=== PATIENT | male | born 1950 | race African-American/Black ===

== ENCOUNTER → 2021-11-17 | Outpatient (CLI) | payer BC | END | disposition home or self-care (01) | LOC: COVID19 15:15 | PROVIDERS: ATTEND Internal Medicine | DX: U07.1 COVID-19 (principal) ==

== ENCOUNTER → 2021-11-24 | Outpatient (CLI) | payer BC | END | disposition home or self-care (01) | LOC: COVID19 14:59 | PROVIDERS: ATTEND Internal Medicine | DX: Z20.822 Contact with and (suspected) exposure to COVID-19 (principal) ==

== ENCOUNTER → 2021-11-30 | Outpatient (CLI) | payer BC | END | disposition home or self-care (01) | LOC: COVID19 14:53 | PROVIDERS: ATTEND Family Medicine | DX: Z20.822 Contact with and (suspected) exposure to COVID-19 (principal) ==

== ENCOUNTER → 2025-07-13 | Outpatient (CLI) | payer MEDICARE ==
[2025-07-13 11:25] LABS: MEAN CELL VOLUME 100.6 fl (80.0-94.0); MEAN CORPUSCULAR HGB 33.2 pg (27.0-31.0); MEAN PLATELET VOLUME 11.7 fl (9.6-12.3); NUCLEATED RED BLOOD CELL 0.0 % (0.0-0.0); NUCLEATED RED BLOOD CELL 0.0 10*3/uL (0.0-0.0); PLATELET COUNT AUTOMATED 154 10*3/uL (130-400); RED CELL DISTRI WIDTH 12.8 % (0-14.5); RETICULOCYTE % 1.51 % (0.50-2.50)
[2025-07-13 11:35] LABS: BUN 7 mg/dl (9-23); GAMMA GLUTAMYL TRANSFERASE 48 U/L (0-73); LDL CHOLESTEROL 164 mg/dL (9-159); SGPT/ALT 34 U/L (5-49)
[2025-07-13 11:36] LABS: MANUAL DIFF REFLEX YES
[2025-07-13 11:37] LABS: VITAMIN D, 25-HYDROXY 49.5 ng/mL (30-100)
[2025-07-13 11:51] LABS: BILIRUBIN Negative (Negative); BLOOD Negative (Negative); CLARITY Clear (Clear); COLOR Dark Yellow (Yellow); KETONE Trace (Negative); LEUKO ESTERASE Negative (Negative); NITRITE Negative (Negative); PH 5.5 (4.5-8.0); SPECIFIC GRAVITY 1.020 (1.001-1.030); UROBILINOGEN 0.2 E.U./dl (0.0-1.0)
[2025-07-13 12:07] LABS: BACTERIA 1+; EPITHELIAL CELLS 0-2; MUCOUS 2+; RBC 0-2 rbc/hpf (0-2); WBC 0-2 wbc/hpf (0-5)
[2025-07-13 12:08] LABS: BASOPHILS 1 % (0-1)
[2025-07-13 12:09] LABS: PLATELET SUFFICIENCY NORMAL (NORMAL)
== END | disposition home or self-care (01) ==
LOC: LAB 10:18
PROVIDERS: ATTEND Family Medicine
DX: J98.11 Atelectasis (principal); R06.02 Shortness of breath; E78.5 Hyperlipidemia, unspecified; E55.9 Vitamin D deficiency, unspecified; R53.83 Other fatigue; R79.89 Other specified abnormal findings of blood chemistry; Z12.5 Encounter for screening for malignant neoplasm of prostate

== ENCOUNTER → 2025-08-07 | Outpatient (CLI) | payer MEDICARE ==
[~2025-08-07] MED LIST: IOHEXOL 300 MG/ML 100 ML VIAL IV ONE; IOHEXOL 300 MG/ML 100 ML VIAL ONE
== END | disposition home or self-care (01) ==
LOC: CT 08-05 16:00
PROVIDERS: ATTEND Family Medicine
DX: K76.89 Other specified diseases of liver (principal); J98.4 Other disorders of lung; I70.8 Atherosclerosis of other arteries; R91.8 Other nonspecific abnormal finding of lung field; M47.814 Spondylosis without myelopathy or radiculopathy, thoracic region